=== PATIENT | male | born 2005 | race Two or more races ===

== ENCOUNTER 2024-11-22 18:58 | Emergency (ER) | payer OTHER ==
[~2024-11-22] VITALS: Ht 175.3 cm; Wt 70.7 kg
--- NOTE | 2024-11-22 19:45 | ED.PDOC ---
Altered Mental Status HPI Comments 19 y.o male BIB mother, presents to the ED s/p behavior change x 2-3 days. Mother reports patient has been behaving abnormally, started off intermittently with patient being alert but unresponsive, blinking excessively, walking in and out of the house, and behaving as if paranoid. Mother states today at 1200, behavior worsened and now patient cannot respond appropriately (if at all) in a conversation. When asking patient questions, he blinks excessively and requires repeating of the question before providing an answer. Pt states he feels tired but denies any pain, n/v, dizziness, SI/HI, auditory or visual hallucinations. Patient acknowledges that his parents brought him to the hospital. Mother denies any medical, surgical history or allergies. Mother mentions patient vapes possibly marijuana from pen but states he has not used any other substances to her knowledge. Patient is usually alert and oriented x 4 and is able to hold a conversation. He admits to vaping marijuana and denies any other drug use. Chief Complaint: Overdose Time Seen by MD: 19:21 Reviewed Notes: Nurses Notes, Medications, Allergies Allergies: Coded Allergies: NO KNOWN ALLERGIES (Unverified , 11/22/24) Information Source: Relative (Mother) Mode of Arrival: Ambulatory Severity: Unable to Care for Self Timing: Days (2-3) Duration: Since onset Quality: Change in Behavior Recent: None History of: None Associated Signs and Symptoms: None Past Medical History PAST MEDICAL HISTORY: Denies Surgical History: Denies all surgeries Family History Family History: Reviewed,noncontributory to illness Social History Smoker: Non-Smoker Alcohol: Denies ETOH Use Drugs: Marijuana Lives In: Home Unable to Obtain due to: Altered Mental Status Physical Exam General Appearance: No Apparent Distress HEENT: PERRL/EOMI, Other (Mucous membranes) Neck: Full Range of Motion, Non-Tender, Normal Inspection, Supple Respiratory: Lungs Clear, No Accessory Muscle Use, No Respiratory Distress, Normal Breath Sounds Cardiovascular: No Edema, No JVD, Regular Rate/Rhythm Breast Exam: Deferred Gastrointestinal: Non Tender, Soft Genitalia: Deferred Pelvic: Deferred Rectal: Deferred Extremities: Normal inspection, Normal range of motion, Non-tender, No pedal edema Neurologic: Alert (Oriented to person, place and purpose. Was unable to state the year.), Normal Mood, Other (Flat affect. Ambulatory without difficulty. No gross focal deficit.) Cerebellar Function: NOT DONE Reflexes: NOT DONE Skin: Dry, Normal Color, Warm Lymphatic: NOT DONE Was a procedure done? Was a procedure done?: No Differential Diagnosis (ALOC) Differential Diagnosis: Dehydration, Hypoglycemia, Encephalopathy, Drug Overdose, ETOH Intoxication, Other (Psychosis) X-Ray, Labs, Meds, VS Vital Signs Date Time Temp Pulse Resp B/P (MAP) Pulse Ox O2 Delivery O2 Flow Rate FiO2 11/22/24 19:23 98.4 118 16 154/83 (106) 97 Lab Test 11/22/24 19:54 11/22/24 19:28 Range/Units White Blood Count 12.1 H 4.4-10.8 10^3/uL Red Blood Count 5.40 4.5-5.90 10^6/uL Hemoglobin 15.9 13.5-17.5 g/dL Hematocrit 48.1 41.0-53.0 % Mean Corpuscular Volume 89.0 80.0-100.0 fL Mean Corpuscular Hemoglobin 29.5 28.0-32.0 pg Mean Corpuscular Hemoglobin Concent 33.2 32.0-36.0 g/dL Red Cell Distribution Width 13.4 11.8-14.3 % Platelet Count 240 140-450 10^3/uL Mean Platelet Volume 8.8 6.9-10.8 fL Neutrophils (%) (Auto) 83.9 H 37.0-80.0 % Lymphocytes (%) (Auto) 9.6 L 10.0-50.0 % Monocytes (%) (Auto) 6.1 0.0-12.0 % Eosinophils (%) (Auto) 0.0 0.0-7.0 % Basophils (%) (Auto) 0.4 0.0-2.0 % Neutrophils # (Auto) 10.1 H 1.6-8.6 10 ^3/uL Lymphocytes # (Auto) 1.2 0.4-5.4 10 ^3/uL Monocytes # (Auto) 0.7 0-1.3 10 ^3/uL Eosinophils # (Auto) 0 0-0.8 10 ^3/uL Basophils # (Auto) 0 0-0.2 10 ^3/uL Nucleated Red Blood Cells 0.1 % Sodium Level 138 136-145 mmol/L Potassium Level 3.4 L 3.5-5.1 mmol/L Chloride Level 102 98-107 mmol/L Carbon Dioxide Level 23 20-31 mmol/L Anion Gap 13 5-15 Blood Urea Nitrogen 9 9-23 mg/dL Creatinine 1.06 0.700-1.30 mg/dL Glomerular Filtration Rate Calc 102 >90 mL/min BUN/Creatinine Ratio 8.5 L 10.0-20.0 Serum Glucose 175 H 74-106 mg/dL Calcium Level 10.7 H 8.7-10.4 mg/dL Total Bilirubin 1.1 H 0.2-1.0 mg/dL Aspartate Amino Transferase (AST) 32 13-40 U/L Alanine Aminotransferase (ALT) 22 7-40 U/L Alkaline Phosphatase 55 46-116 U/L Total Protein 8.3 H 5.7-8.2 g/dL Albumin 5.7 H 3.2-4.8 g/dL Salicylates Level < 3.0 -30 mg/dL Acetaminophen Level < 2.0 L 10.0-20.0 UG/ML Plasma/Serum Blood Alcohol < 3.0 <10 mg/dL Urine Color Colorless Yellow Urine Clarity Clear Clear Urine pH 6.0 5.0-9.0 Urine Specific [place] 1.007 1.001-1.035 Urine Protein Negative Negative Urine Ketones 1+ H Negative Urine Blood Negative Negative /uL Urine Nitrite Negative Negative Urine Bilirubin Negative Negative Urine Urobilinogen Normal Negative mg/dL Urine Leukocyte Esterase Negative Negative /uL Urine RBC <1 0 - 3 /hpf Urine Microscopic WBC < 1 0-3 /HPF Urine Squamous Epithelial Cells Few <5 /hpf Urine Bacteria None seen None Seen /hpf Urine Glucose Normal Normal mg/dL Urine Opiates Screen Neg NEGATIVE Urine Fentanyl Screen Neg NEGATIVE Urine Barbiturates Screen Neg NEGATIVE Urine Phencyclidine Screen Neg NEGATIVE Urine Amphetamines Screen Neg NEGATIVE Urine Benzodiazepines Screen Neg NEGATIVE Urine Cocaine Screen Neg NEGATIVE Urine Cannabinoids Screen Pos NEGATIVE X-Ray, Labs, Meds, VS Comment 19-year-old male with no significant past medical history brought in by parents for evaluation of abnormal behavior Vitals remarkable for heart rate 118, BP 154/83 Exam remarkable for orientation to person, place and purpose. Patient was unable to state the year. Patient is demonstrating a flat affect and delayed responses to questions. CBC remarkable for WBC 12.1, comprehensive metabolic panel remarkable for potassium 3.4, Tylenol, salicylate, alcohol level and UA unremarkable for any abnormality of acute significance Urine drug screen positive for cannabinoids Patient treated with the following in the ED: Effervescent potassium 50 mEq p.o. Patient is resting comfortably with stable vitals on re-evaluation at 2130. He is currently medically cleared for tele psych evaluation, which has been ordered. Patient endorsed to the overnight ED physician at 2200 pending tele psych evaluation. Time of 1ST Reevaluation: 19:37 Reevaluation 1ST: Unchanged Patient Education/Counseling: Other Family Education/Counseling: Diagnosis, Treatment, Prognosis Departure 1 Departure Time of Disposition: 22:00 Impression: Primary Impression: Abnormal behavior Disposition: 30 STILL A PATIENT Condition: Stable Critical Care Note Critical Care Time?: No Stability Stability form required: No I personally scribed for CONRADO HERRERA MD ([facility] on 11/22/24 at 19:45. Electronically submitted by Deidre Seo ([facility]). CONRADO HERRERA MD Nov 22, 2024 19:45
[2024-11-22 19:59] LABS: Urine Bacteria None Seen /hpf (None Seen)
[2024-11-22 20:10] LABS: Urine Blood Negative /uL (Negative); Urine Clarity Clear (Clear); Urine Color Colorless (Yellow); Urine Protein, UAD Negative (Negative); Urine Specific Gravity 1.007 (1.001-1.035); Urine Squamous Epithelial Cell FEW /hpf (<5); Urine Urobilinogen Normal (Negative); Urine WBC < 1 /HPF (0-3)
[2024-11-22 20:52] LABS: Amphetamine Screen, Urine Neg (NEGATIVE); Barbiturate Scree,Urine Neg (NEGATIVE); Benzodiazephine Screen, Urine Neg (NEGATIVE); Cannabinoid Screen, Urine Pos (NEGATIVE); Cocaine Screen, Urine Neg (NEGATIVE); Opiate Scree,Urine Neg (NEGATIVE); Phencyclidine Screen, Urine Neg (NEGATIVE)
[2024-11-22 21:05] LABS: Acetaminophen < 2.0 UG/ML (10.0-20.0); Alanine Aminotransferase 22 U/L (7-40); Albumin 5.7 g/dL (3.2-4.8); Alkaline Phosphatase 55 U/L (46-116); Anion Gap 13 (5-15); Aspartate Aminotransferase 32 U/L (13-40); BUN/Creatinine Ratio 8.5 (10.0-20.0); Basophils # (auto) 0 10 ^3/uL (0-0.2); Basophils % (auto) 0.4 % (0.0-2.0); Bilirubin, Total 1.1 mg/dL (0.2-1.0); Blood Alcohol < 3.0 mg/dL (<10); Blood Urea Nitrogen 9 mg/dL (9-23); Calcium 10.7 mg/dL (8.7-10.4); Carbon Dioxide 23 mmol/L (20-31); Chloride 102 mmol/L (98-107); Eosinophils # (auto) 0 10 ^3/uL (0-0.8); Glucose 175 mg/dL (74-106); Hematocrit 48.1 % (41.0-53.0); Hemoglobin 15.9 g/dL (13.5-17.5); Lymphocytes # (auto) 1.2 10 ^3/uL (0.4-5.4); Lymphocytes % (auto) 9.6 % (10.0-50.0); Mean Corpuscular Hemoglobin 29.5 pg (28.0-32.0); Mean Corpuscular Hgb Conc. 33.2 g/dL (32.0-36.0); Monocytes # (auto) 0.7 10 ^3/uL (0-1.3); Monocytes % (auto) 6.1 % (0.0-12.0); Neutrophils # (auto) 10.1 10 ^3/uL (1.6-8.6); Neutrophils % (auto) 83.9 % (37.0-80.0); Nucleated Red Blood Cells % 0.1 %; Platelet Count (auto) 240 10^3/uL (140-450); Potassium 3.4 mmol/L (3.5-5.1); Red Cell Distribution Width 13.4 % (11.8-14.3); Salicylate < 3.0 mg/dL (-30); Sodium 138 mmol/L (136-145); Total Protein 8.3 g/dL (5.7-8.2); White Blood Cell 12.1 10^3/uL (4.4-10.8)
[2024-11-22] MEDS: LORazepam 2MG/ML-1ML VIAL IM ONE (22:23)
[2024-11-22 22:31] VITALS: PULSE 128; RESP 24; O2SAT 99
[2024-11-22] MEDS: POTASSIUM EFFERVESENT TAB 25 MEQ PO ONE (22:31)
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
[2024-11-23] MEDS: OLANZapine 5 MG TAB PO SCH (07:00)
[2024-11-23] MEDS: HALOPERIDOL LACTATE 5 MG/ML INJ VIAL ONE (07:35)
[2024-11-23] MEDS: LORazepam 2MG/ML-1ML VIAL ONE (07:36)
[2024-11-23] MEDS: diphenhdrAMINE HCL 50 MG/1 ML VL ONE (07:36)
[2024-11-23] MEDS: HALOPERIDOL LACTATE 5 MG/ML INJ VIAL IM ONE ×2 (07:58→23:24)
[2024-11-23] MEDS: diphenhdrAMINE HCL 50 MG/1 ML VL IM ONE ×2 (07:59→23:23)
[2024-11-23] MEDS: LORazepam 2MG/ML-1ML VIAL IM ONE ×2 (07:59→23:24)
[2024-11-23 19:30] VITALS: PULSE 105; RESP 18; O2SAT 99
[2024-11-23] MEDS ORDERED: LORazepam 2MG/ML-1ML VIAL ONE (22:09)
[2024-11-23] MEDS ORDERED: diphenhdrAMINE HCL 50 MG/1 ML VL ONE (22:09)
[2024-11-23] MEDS ORDERED: HALOPERIDOL LACTATE 5 MG/ML INJ VIAL ONE (22:09)
[2024-11-23] MEDS ORDERED: MIDAZOLAM HCL 2MG/2ML 2ml VIAL (1mg/ml) ONE (23:01)
[2024-11-23] MEDS: MIDAZOLAM HCL 2MG/2ML 2ml VIAL (1mg/ml) IM PRN (23:44)
[2024-11-24] MEDS: MIDAZOLAM HCL 2MG/2ML 2ml VIAL (1mg/ml) IV PRN (09:00)
--- NOTE | 2024-11-24 11:23 | TELE.CONS ---
PSYCHIATRY REASSESSMENT Date: 11/24/24 1055 S: The patient was seen and evaluated at [facility] ED via telepsychiatry platform. 19 yr old male BIB Parents to ED after erratic beahvior. He was evaluated on 11/23 0600 by psychiatrist Saurabh Perez and was recommended for voluntary admission to [facility]. His parents (Father Owen Cummings) reported that he had order "Sched ule 35" mushrooms on line and had taken 100 capsules (while the recommended dose is one capsule). Since taking them he has been aggressive, combative and disorganized. Father reported he also used cannabis in the past. No history of past mental illness, treatment, hospitalization or suicide. He works at [employer] in the [employer], goes to gym regularly and lives with parents. He graduated HS. MSE: alert and disoriented speech-repeats "You don't have authority over me" Mood-unable to assess Affect-irritable congruent. Tht process-disoriented Tht Content-unable to assess Insight-poor Judgment-poor Impulse control-poor. Diagnosis: SUBSTANCE INDUCED PSYCHOTIC DISORDER; HALLUCINOGEN USE DISORDER WITH INTOXICATION Assessment: This 19 yr old male appears to suffer from psychosis due to intoxication on mushrooms. He is currently disorganized, combatitive and aggressive and meets criteria for involuntary hold for danger to self, danger to others and grave disability. He warrants further observation and may benefit fr om starting an antipsychotic medication and transfer to behavioral health unit. Plan: 1. Transfer to behavioral health unit when medically cleared. Recommend contacting poison control to determine length of observation. 2. Legal-involuntary 5150 hold. monitor for safety. 3. Medications-Recommend starting Olanzapine 5mg PO BID if patient will take it. Haldol 5mg q6hr PRN agitation Benadryl 50mg q6hr prn agitation Ativan 2mg or Versed q6hr PRN anxiety 4. Case discussed with ED JESUS Jose and Dr Maki. 5. Please contact psychiatry if further follow up or reevaluation is desired. Yes RASHEED CORDERO MD Nov 24, 2024 11:22
[2024-11-24] MEDS ORDERED: MIDAZOLAM HCL 5 MG/ML-1ML VIAL IM PRN (11:45)
[2024-11-24] MEDS ORDERED: diphenhdrAMINE HCL 50 MG/1 ML VL IM PRN (11:45)
[2024-11-24] MEDS ORDERED: HALOPERIDOL LACTATE 5 MG/ML INJ VIAL IM PRN (11:45)
[2024-11-24] MEDS: OLANZapine 5 MG TAB PO ONE (13:05)
[2024-11-24 19:30] VITALS: PULSE 60; RESP 15; O2SAT 97
[2024-11-25] MEDS ORDERED: ADENOSINE 6 MG/2 ML INJ IV ONE (04:36)
[2024-11-25] MEDS: LORazepam 2MG/ML-1ML VIAL IV ONE (04:52)
[2024-11-25] MEDS: SODIUM CHLORIDE 0.9% 2,000 ML IV ONE (04:52)
[2024-11-25 10:05] VITALS: PULSE 111; RESP 14; O2SAT 100
[2024-11-25 13:11] VITALS: BP 133/88; PULSE 99; RESP 15; TEMP 98; O2SAT 100
--- NOTE | 2024-11-26 09:55 | ECG ---
[facility] Test Date: 2024-11-25 Test Time: 04:38:10 Pat Name: SIMONE SCHMIDT Department: ER Room: Gender: M Environmental Protection Officer: NAHID : 2005 Requested By: RASHEED CORDERO Order Number: [id number] Reading MD: Bebeto Enriquez Measurements Intervals Viola Rate: 160 P: 25 VT: 119 QRS: 203 QRSD: 106 T: 59 QT: 351 QTc: 573 Interpretive Statements Sinus tachycardia/SVT Probable right ventricular hypertrophy Probable inferior infarct, old ST elevation, consider anterior injury Prolonged QT interval Electronically Signed On 11-26-2024 22:14:16 PST by Bebeto Enriquez Please click the below link to view image of tracing.
== END 2024-11-25 13:25 | disposition short-term general hospital (02) ==
LOC: ER 18:58
DX: R46.89 Other symptoms and signs involving appearance and behavior (principal); Z79.899 Other long term (current) drug therapy
CPT/HCPCS: 36415; 80053; 80307; 80320; 80329; 81001; 85025; 93005; 96372; 96374; 99285; J0153; J1200; J1630; J2060; J2250